=== PATIENT | female | born 1955 | race Caucasian/White ===

== ENCOUNTER → 2017-09-04 | Outpatient (CLI) | payer BC ==
--- NOTE | 2017-09-04 20:46 | RADIOLOGY IMAGING REPORT ---
FACILITY: [facility] - [place] PATIENT NAME: Janette Cornejo : 1955 MR: [id number] V: [id number] EXAM DATE: ORDERING PHYSICIAN: NEGRA VOGEL TECHNOLOGIST: Location: [facility] Patient: Janette Cornejo : 1955 Visit/Account:[id number] Date of Sevice: 09/04/2017 HAND 3 OR MORE VIEW BILATERAL HISTORY: Bilateral hand pain that has gotten worse. COMPARISON: No prior films available for comparison. FINDINGS: Right side: There is no fracture or dislocation involving the right hand. There are mild findings of joint space narrowing involving the fifth DIP joint with subchondral cirrhosis and bony proliferatio n. These findings are suggestive of osteoarthrosis. There may be less prominent findings of osteoarth rosis at the fourth DIP joint as well. There are no findings of osteoarthrosis involving the first CM C joint. Left side: There is no fracture or dislocation involving the left hand. There are findings of joint s pace narrowing with subchondral sclerosis and bony proliferation involving the left fifth DIP joint. These findings are suggestive of osteoarthrosis. There are no findings of osteoarthrosis involving t he first CMC joint. IMPRESSION: In both hands there are findings suggestive of osteoarthrosis in the fifth DIP joint; right side grea ter than left. There are minimal findings of osteoarthrosis involving the fourth DIP joint on the rig ht side. In either hand other findings of osteoarthrosis involving the first CMC joint. Report Dictated By: Maximino Hernandez MD at 09/04/2017 8:36 PM Report E-Signed By: Maximino Hernandez MD at 09/04/2017 8:40 PM WSN:[id number]
== END ==
LOC: RAD 16:09
PROVIDERS: ATTEND Nurse Practitioner Family
DX: M19.042 Primary osteoarthritis, left hand (principal); M19.041 Primary osteoarthritis, right hand

== ENCOUNTER → 2018-06-25 | Outpatient (REF) ==
--- NOTE | 2018-06-25 16:01 | RADIOLOGY IMAGING REPORT ---
FACILITY: [facility] - [place], [place] PATIENT NAME: Janette Cornejo : 1955 MR: [id number] V: [id number] EXAM DATE: ORDERING PHYSICIAN: BOONE MENDEZ TECHNOLOGIST: Location: [facility] Patient: Janette Cornejo : 1955 Visit/Account:[id number] Date of Sevice: 06/25/2018 EXAMINATION: MRI lumbar spine without IV contrast HISTORY: Low back pain, right leg pain, L4-5 spondylosis. COMPARISON: None. TECHNIQUE: Multi-planar, multi-sequence lumbar spine MRI was performed without intravenous contrast administration. FINDINGS: Alignment: Grade 1 anterolisthesis at L4-5 measures 4 mm. Vertebral marrow signal: There are a few small scattered benign hemangiomata. Distal thoracic cord: Negative. Conus: negative, terminates at L1-2. Cauda equina: Negative. Paravertebral soft tissues: Negative. Visualized abdominal and pelvic structures: Negative. Disc spaces: There is disc desiccation of the visualized spine. Lower thoracic spine: Normal. L1-2: Normal. L2-3: Normal. L3-4: Mild concentric disc bulge with bilateral facet hypertrophy and ligamentum flavum laxity. No si gnificant central canal or foraminal stenosis. L4-5: Mild disc space narrowing with anterolisthesis and uncovering of the disc. There is a mild conc entric disc bulge, severe bilateral facet hypertrophy and ligamentum flavum laxity. Moderate to sever e central canal stenosis and moderate bilateral foraminal stenosis. L5-S1: Mild concentric disc bulge and bilateral facet hypertrophy. No significant central canal or fo raminal stenosis. IMPRESSION: 1. Degenerative disc disease and facet arthropathy is worst at L4-5 where there is moderate to severe spinal stenosis and moderate bilateral foraminal stenosis. Please see the findings for description o f individual level disease. 2. Grade 1 degenerative anterolisthesis at L4-5 measuring 4 mm. Report Dictated By: Jeimy Arita MD at 06/25/2018 3:53 PM Report E-Signed By: Jeimy Arita MD at 06/25/2018 3:56 PM WSN:[id number]
== END ==
LOC: MRI 01:16
PROVIDERS: ATTEND Orthopaedic Surgery Orthopaedic Surgery of the Spine
DX: M48.062 Spinal stenosis, lumbar region with neurogenic claudication (principal); M51.36 Other intervertebral disc degeneration, lumbar region
CPT/HCPCS: 72148